=== PATIENT | male | born 1965 | race Hispanic/Latino ===

== ENCOUNTER 2018-11-05 20:08 | Emergency (ER) | payer BC ==
[2018-11-05] MEDS ORDERED: Acetaminophen 500 MG TAB ONE (20:31)
[2018-11-05] MEDS ORDERED: Ondansetron ODT 4 MG TAB ONE (20:31)
[2018-11-05 20:56] LABS: Hemoglobin 14.7 g/dL (14.0-18.0); Mean Corpuscular Hemoglobin 28.3 pg (27.0-31.0); Mean Corpuscular Volume 85.5 fL (78.0-98.0); Mean Platelet Volume 7.3 fL (7.4-10.4); Platelet Count 186 thou/uL (130-400); RBC Distribution Width 13.7 % (11.5-14.5); Red Blood Cell (RBC) Count 5.19 mill/uL (4.70-6.10)
[2018-11-05 21:02] LABS: Clarity Hazy (Clear); Specific Gravity, Urine 1.015 (1.005-1.030); pH, Urine 7.5 (5.0-9.0)
[2018-11-05 21:03] LABS: Bilirubin Negative (Negative); Blood, Urine Negative (Negative); Glucose, Urine (Dipstick) Negative (Negative); Leukocyte Small (Negative); Nitrite Negative (Negative); Protein, Urine (Dipstick) Negative (Neg-Trace)
[2018-11-05 21:07] LABS: ALT (SGPT) 25 U/L (8-55); AST (SGOT) 23 U/L (5-34); Albumin 4.1 g/dL (3.5-5.0); Alkaline Phosphatase 63 U/L (40-150); Anion Gap 11 mmol/L (10-20); BUN (Urea Nitrogen) 11 mg/dL (8.4-25.7); Calc. Creatinine Clearance 0 mL/min (70-130); Calcium 9.3 mg/dL (7.8-10.44); Carbon Dioxide 24 mmol/L (22-29); Chloride 100 mmol/L (98-107); Estimated GFR-MDRD Greater than 90; Globulin 3.4 g/dL (2.4-3.5); Glucose 108 mg/dL (70-105); Potassium 3.7 mmol/L (3.5-5.1); Protein, Total 7.5 g/dL (6.0-8.3); Sodium 131 mmol/L (136-145)
[2018-11-05 21:09] LABS: Bacteria/HPF Rare-Few HPF (None Seen); RBC/HPF 0-3 HPF (0-3); Squamous Epithelial 0-3 HPF (0-3)
[2018-11-05 21:16] LABS: Band 5 % (5-11); Lymphocytes 4 % (21-51); MDiff Complete? YES; Monocytes 8 % (0-10); Neutrophil 83 % (42-75); Platelet Morphology Comment Appears Adequate; RBC Morphology Normal
[2018-11-05] MEDS ORDERED: cefTRIAXone\\ROCEPHIN 2 GM VIAL ONE (21:26)
--- NOTE | 2018-11-05 21:47 | RAD ---
RADIOGRAPH CHEST 1 VIEW: DATE: 11/05/2018 HISTORY: 53-year-old male with fever FINDINGS: There are no airspace densities, pulmonary edema, pneumothorax, or cardiomegaly. The lateral costophr enic angles are sharp. IMPRESSION: No acute cardiopulmonary findings.
--- NOTE | 2018-11-05 22:21 | CT ---
CT abdomen noncontrast CT pelvis noncontrast: (Urolithiasis protocol) DATE: 11/05/2018 HISTORY: 53-year-old male with fever, leukocytosis, and dysuria TECHNIQUE: IV injection of iodinated contrast media: None Oral contrast media: None FINDINGS: Other than for urolithiasis, the lack of IV and oral contrast limits the evaluation. Liver: No contour abnormalities. Diffusely slightly low attenuation suggestive of fatty liver. Spleen: No splenomegaly. Pancreas: No contour abnormalities. Adrenals: No mass. Kidneys: No nephrolithiasis or overt hydronephrosis. 2 x 1.5 cm poorly visualized low attenuation les ion at left renal midpole parenchyma with density of 4HU. Ureters: No calculi. Bladder: No calculi. Normal mural thickness. Abdominal aorta: No aneurysm. Small bowel: No dilation. Colon: No adjacent fat stranding. Appendix: Normal. Free air: None Free fluid: None Prostate gland: Diffusely slightly low attenuation. Margins somewhat indistinct. Mild to moderate enl argement. Small calcification. IMPRESSION: 1) suspected prostatitis; less likely prostate cancer. 2) hepatic steatosis. 3) a 2 cm left renal cystic lesion, incompletely evaluated and incompletely characterized. 4) no urolithiasis or obstructive uropathy.
== END 2018-11-05 22:30 | disposition short-term general hospital (02) ==
LOC: BURERS 20:08
DX: A41.9 Sepsis, unspecified organism (principal); N39.0 Urinary tract infection, site not specified
CPT/HCPCS: 36415; 71045; 74176; 80053; 81003; 81015; 83605; 85025; 87040; 87077; 87086; 87186; 87804; 96361; 96374; J0696; Q0162